=== PATIENT | male | born 1970 | race Caucasian/White ===

== ENCOUNTER 2019-04-17 10:01 | Emergency (ER) | payer OTHER ==
[2019-04-17] MEDS ORDERED: Adacel (T-DAP) 0.5 ML SYRINGE ONE (10:38)
== END 2019-04-17 11:58 | disposition home or self-care (01) ==
LOC: EEVIPCON 10:01 → ERS 10:01
DX: S01.112A Laceration without foreign body of left eyelid and periocular area, initial encounter (principal); S00.03XA Contusion of scalp, initial encounter; Z87.891 Personal history of nicotine dependence; Z79.899 Other long term (current) drug therapy; Z23 Encounter for immunization; W22.8XXA Striking against or struck by other objects, initial encounter
CPT/HCPCS: 12013; 90471; 90715